=== PATIENT | male | born 2000 ===

== ENCOUNTER 2024-02-26 18:04 | Emergency (ER) | payer SELFPAY ==
[2024-02-26 18:07] VITALS: BP 139/69
--- NOTE | 2024-02-26 20:43 | ED.GENMED ---
History of Present Illness
General
Chief Complaint: Skin Problem
Source: patient
Exam Limitations: none
Time Seen by Provider: 02/26/24 19:55
Nursing documentation reviewed up to this point in time: agreed with
History of Present Illness
History of Present Illness:
Patient presents to ED secondary to rash noted over his left hip, which now has started to drain fluid. Patient noted 'bubble' 1 week ago, which erupted with aforementioned symptoms. Patient was discharged from [facility] recently. Denies previous
history of similar symptoms. Denies fever or chills. Denies nausea or vomiting. Denies trauma.
Review of Systems
Review of Systems
Allergies reviewed?: Yes
All Other Systems: ROS reviewed and negative except as documented in HPI and ROS
Constitutional: Reports no symptoms
ABD/GI: Reports no symptoms
Musculoskeletal: Reports no symptoms
Skin: Reports other (hip open wound)
Neurological: Reports no symptoms
Phy Exam
Physical Exam
Physical Exam:
Physical Exam
General: no apparent distress, not acutely ill. afebrile
Head: nc/at. eomi
Neck: supple. normal range of motion.
Neuro: alert and oriented. no focal neurological deficits
Skin: an approx 2cm diameter ulcer over left hip with minimal drainage, without surrounding erythema/warmth.
Psychiatric: well kept. interactive and cooperative
Extremities: no edema. no calf tenderness.
Course
Orders/Labs/Results
Orders:
Orders
02/26/24 20:43
Cephalexin Monohydrate [Keflex] 500 mg PO NOW STA
Sulfamethox./Trimethoprim Ds [Bactrim Ds 800 mg/160 mg] 1 tablet PO NOW STA
Vital Signs
Initial and Last Documented VS:
Initial Vital Signs
Temp Pulse Resp BP Pulse Ox
98.1 F 71 18 139/69 97
02/26/24 18:07 02/26/24 18:07 02/26/24 18:07 02/26/24 18:07 02/26/24 18:07
Last Documented Vital Signs
Temp Pulse Resp BP Pulse Ox
98.1 F 71 18 139/69 97
02/26/24 18:07 02/26/24 18:07 02/26/24 18:07 02/26/24 18:07 02/26/24 18:07
MDM/Problems Addressed
MDM/Problems Addressed:
Patient with what appears to be a MRSA infection noted over his left hip with second lesion resolving. No indication for incision and drainage at this time. No evidence of systemic infection. Patient will be started on Bactrim/Keflex, along with
referral to medical clinic for reevaluation, as he currently does not have primary care physician. Advised to return to ED with worsening symptoms.
*Critical Care Note
Total Time (30-74mins, 75-104mins- exclusive of procedures): Not Applicable
ED Attending Note
-
Portions of this chart may have been created with voice recognition software.� Occasional wrong word or��sound alike� substitutions may have occurred due to the inherent limitations of voice recognition software.
Discharge Plan
Departure
Patient Disposition: Home (Routine Discharge)
Date of Disposition: 02/26/24
Time of Disposition: 20:43
Patient with high blood pressure during this ER visit?: Yes
Discharge Problem:
MRSA infection
Instructions: Cellulitis (Skin Infection), Adult (DC), Skin Abscess
Prescriptions:
New
sulfamethoxazole-trimethoprim [Bactrim DS] 800-160 mg tablet
1 tab PO BID Qty: 13 0RF
cephalexin 500 mg capsule
500 mg PO QID Qty: 27 0RF
Referrals:
[facility] [Outside]
NONE,* [Family Provider] -
Activity Restrictions/Additional Instructions:
[facility]
[address]
[place] [address]
[phone]
Interventions
Interventions:
*Risk Screen - Suicide Last Done: 02/26/24 18:07
*General Assessment Last Done: 02/26/24 18:07
*Neglect/Abuse Screening Last Done: 02/26/24 18:07
ED-Skin Assessment Last Done: 02/26/24 18:50
Discharge Date and Time
Print Language: BANGLADESHI
[2024-02-26] MEDS: BACTRIM DS 800 MG/160 MG 1 TABLET PO (20:59)
[2024-02-26] MEDS: KEFLEX 500 MG PO (20:59)
[2024-02-26 21:13] VITALS: BP 119/69
[2024-02-26 21:15] VITALS: BP 119/69
== END 2024-02-26 21:15 | disposition home or self-care (01) ==
LOC: EMR 18:04
PROVIDERS: EMERGENCY PHYSICIAN Emergency Medicine
DX: R21 Rash and other nonspecific skin eruption (principal); L98.491 Non-pressure chronic ulcer of skin of other sites limited to breakdown of skin; B95.62 Methicillin resistant Staphylococcus aureus infection as the cause of diseases classified elsewhere; R03.0 Elevated blood-pressure reading, without diagnosis of hypertension
CPT/HCPCS: 99283